=== PATIENT | male | born 1985 | race Caucasian/White ===

== ENCOUNTER 2017-10-15 09:28 | Emergency (ER) | payer MEDICAID ==
[~2017-10-15] VITALS: Ht 177.8 cm; Wt 103.0 kg
[2017-10-15 09:42] VITALS: Ht 177.8 cm; Wt 103.0 kg
[2017-10-15 11:40] VITALS: BP 132/88
== END 2017-10-15 11:40 | disposition home or self-care (01) ==
LOC: ED 09:28
DX: S51.812A Laceration without foreign body of left forearm, initial encounter (principal); Z88.0 Allergy status to penicillin; W26.8XXA Contact with other sharp object(s), not elsewhere classified, initial encounter; Y93.89 Activity, other specified; Y92.89 Other specified places as the place of occurrence of the external cause; Y99.8 Other external cause status
CPT/HCPCS: 90715; J2001